=== PATIENT | male | born 1975 | race Caucasian/White ===

== ENCOUNTER 2018-09-18 10:53 | Emergency (ER) | payer OTHER ==
[2018-09-18] MEDS ORDERED: Adacel (T-DAP) 0.5 ML SYRINGE ONE (11:19)
[2018-09-18] MEDS ORDERED: Lidocaine 2% w/ Epi 1:200K 10 ML VIAL ONE (11:29)
[2018-09-18] MEDS ORDERED: Lidocaine 2% PF 5 ML VIAL ONE ×2 (11:30→11:31)
[2018-09-18] MEDS ORDERED: Bacitracin 1 PK ONE (12:00)
--- NOTE | 2018-09-18 15:33 | RAD ---
RIGHT THUMB THREE VIEWS: 09/18/18 Some foreign bodies are noted in the soft tissues on the palmar aspect of the thumb. No bony abnormal ity was seen. The joints appear normal. IMPRESSION: Soft tissue debris or foreign bodies. POS: HOME
== END 2018-09-18 12:07 | disposition home or self-care (01) ==
LOC: BURERS 10:53
DX: S61.011A Laceration without foreign body of right thumb without damage to nail, initial encounter (principal); M10.9 Gout, unspecified; F17.210 Nicotine dependence, cigarettes, uncomplicated; Z23 Encounter for immunization; W20.8XXA Other cause of strike by thrown, projected or falling object, initial encounter
CPT/HCPCS: 12002; 90471; 90715; J2001